=== PATIENT | male | born 1980 | race Caucasian/White ===

== ENCOUNTER 2019-08-31 12:51 | Emergency (ER) | payer MEDICARE, MEDICAID ==
[~2019-08-31] VITALS: Ht 193 cm; Wt 87.6 kg
[~2019-08-31 12:51] MED LIST: MOTRIN600 PO; RISP4TAB; TRAZ50TA; ZIPR80CAP
[2019-08-31] MEDS ORDERED: NS 1,000 ML IV ONE (13:45)
[2019-08-31 13:57] LABS: BASO # 0.1 10^3/uL (0.0-0.2); BASO % 0.4 % (0.0-1.0); EOS % 0.2 % (0.0-3.0); HEMATOCRIT 48.7 % (42.0-52.0); HEMOGLOBIN 16.8 g/dl (13.5-17.5); LYMPH # 1.9 10^3/uL (1.5-5.0); LYMPH % 9.5 % (24.0-44.0); MEAN CORPUSCULAR HEMOGLOBIN 30.3 pg (27.0-33.0); MEAN CORPUSCULAR HGB CONC 34.5 g/dl (32.0-36.5); MEAN CORPUSCULAR VOLUME 87.9 fl (80.0-96.0); MONO # 0.9 10^3/uL (0.0-0.8); MONO % 4.5 % (0.0-5.0); NEUTROPHILS # 16.6 10^3/uL (1.5-8.5); PLATELET COUNT, AUTOMATED 164 10^3/uL (150-450); RED BLOOD COUNT 5.54 10^6/uL (4.30-6.10); WHITE BLOOD COUNT 19.5 10^3/uL (4.0-10.0)
[2019-08-31 14:27] LABS: ALT/SGPT 19 U/L (12-78); BILIRUBIN,DIRECT 0.1 MG/DL (0.0-0.2); BILIRUBIN,TOTAL 0.8 MG/DL (0.2-1.0); BLOOD UREA NITROGEN 11 MG/DL (7-18); CALCIUM LEVEL 9.3 MG/DL (8.5-10.1); CARBON DIOXIDE LEVEL 27 MEQ/L (21-32); CHLORIDE LEVEL 105 MEQ/L (98-107); CK-MB VALUE MASS 1.6 NG/ML (<3.6); CPK CREATINE PHOSPHOKINASE 66 U/L (39-308); CREATININE FOR GFR 0.98 MG/DL (0.70-1.30); GLOMERULAR FILTRATION RATE > 60.0 (>60); GLUCOSE, FASTING 218 MG/DL (70-100); LIPASE 41 U/L (73-393); MB/CK RELATIVE INDEX 2.42 (< OR =4); POTASSIUM SERUM 4.1 MEQ/L (3.5-5.1); SODIUM LEVEL 139 MEQ/L (136-145); THYROID STIMULATING HORMONE 0.474 uIU/ML (0.358-3.740); TOTAL PROTEIN 6.7 GM/DL (6.4-8.2); TROPONIN I < 0.02 NG/ML (< 0.10)
--- NOTE | 2019-08-31 14:58 | REP ---
REASON: Dizziness. No trauma. No prior. TECHNIQUE: 4.5 mm contiguous transaxial sections were obtained from the skull base to the cerebral convexities with thin cuts through the posterior fossa without the administration of intravenous contrast. FINDINGS: The ventricles and sulci are consistent with the patient's age. There are no extra-axial fluid collections. There is no mass effect. The deep cerebral white matter is consistent with the patient's age. The orbital and petrous structures , cerebellopontine angles, and posterior fossa are unremarkable. The sella turcica, cavernous, and paracavernous structures are essentially unremarkable. The visualized portions of the paranasal sinuses and mastoid air cells are clear. Images of the skull base show no gross abnormality. IMPRESSION: Essentially unremarkable CT examination of the brain. Electronically Signed by Duglas Holly DO 08/31/2019 04:51 P
[2019-08-31 15:08] LABS: AMPHETAMINES LEVEL URINE NEGATIVE (NEGATIVE); BARBITURATES URINE NEGATIVE (NEGATIVE); BENZODIAZEPINES URINE NEGATIVE (NEGATIVE); CANNABINOIDS URINE NEGATIVE (NEGATIVE); COCAINE METABOLITE URINE NEGATIVE (NEGATIVE); METHADONE URINE NEGATIVE (NEGATIVE); OPIATES URINE NEGATIVE (NEGATIVE); PHENCYCLIDINE URINE NEGATIVE (NEGATIVE)
--- NOTE | 2019-08-31 15:09 | REP ---
REASON FOR EXAM: Abdominal pain. PRIORS: None. There is elevation of the diaphragmatic surfaces of the right lung. In the right lower lobe, there is a faintly visible 6 mm size nodule. This possibly represents the patient's nipple. The lung mccoy are otherwise clear and the heart is not enlarged. The pleural angles are sharp and the osseous structures are within normal limits. IMPRESSION: 1. Elevation of the diaphragmatic surface of the right lung, etiology uncertain. 2. Nodule in the right lower lobe as described above. Consider followup examination with nipple markers in place. One PA view of the chest with patient's arms up and the other PA view of the chest with the patient's arms down, both views with nipple markers in place. Electronically Signed by Duglas Holly DO 08/31/2019 04:51 P
[2019-08-31 16:55] VITALS: BP 152/89
[2019-08-31] MEDS ORDERED: AZIT-12 PO (17:25)
--- NOTE | 2019-08-31 19:14 | ECGEPIP ---
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
--- NOTE | 2019-09-01 07:05 | REP ---
REASON: Abdominal pain with leukocytosis. The lack of intravenous contrast and oral bowel preparatory contrast decreases the sensitivity of the exam. The lung bases are clear. Limited evaluation of the solid intra-abdominal organs and gallbladder show no gross abnormalities. Limited evaluation of the pancreas, adrenal glands, and kidneys show no gross abnormalities. Limited evaluation of the bowel loops and their mesenteries show no gross abnormalities. There is no free fluid or free air in the abdomen or pelvis. There is no intra-abdominal or intrapelvic mass or adenopathy. Limited evaluation of the abdominal aorta and paraaortic regions show no gross abnormalities. Bone window technique throughout the examination shows no osseous abnormality. There are age-related spinal degenerative changes. IMPRESSION: Limited noncontrast enhanced CT examination of the abdomen and pelvis is within normal limits. Electronically Signed by Duglas Holly DO 09/01/2019 12:45 P
--- NOTE | 2019-09-02 12:17 | ED PDOC ---
Post-Departure Follow-Up [facility] and dr ruiz faxed formal report of cxr for fu Zara Brannon MD Sep 02, 2019 12:17
== END 2019-08-31 17:53 | disposition home or self-care (01) ==
LOC: M ED 12:51
DX: R91.1 Solitary pulmonary nodule (principal); D72.829 Elevated white blood cell count, unspecified; E11.9 Type 2 diabetes mellitus without complications; F17.218 Nicotine dependence, cigarettes, with other nicotine-induced disorders; Z88.0 Allergy status to penicillin

== ENCOUNTER 2019-09-10 11:24 | Emergency (ER) | payer MEDICARE, MEDICAID ==
[~2019-09-10] VITALS: Ht 193 cm; Wt 88.3 kg
[2019-09-10 11:24] VITALS: BP 153/82
[~2019-09-10 11:24] MED LIST changes: +AZIT-12 PO
[2019-09-10 12:22] LABS: BASO # 0.1 10^3/uL (0.0-0.2); BASO % 0.8 % (0.0-1.0); EOS # 0.2 10^3/uL (0.0-0.5); EOS % 1.6 % (0.0-3.0); HEMATOCRIT 46.7 % (42.0-52.0); LYMPH # 2.9 10^3/uL (1.5-5.0); LYMPH % 28.3 % (24.0-44.0); MEAN CORPUSCULAR HEMOGLOBIN 30.9 pg (27.0-33.0); MEAN CORPUSCULAR HGB CONC 34.3 g/dl (32.0-36.5); MEAN CORPUSCULAR VOLUME 90.2 fl (80.0-96.0); MONO # 0.6 10^3/uL (0.0-0.8); NEUTROPHILS # 6.5 10^3/uL (1.5-8.5); NEUTROPHILS % 63.1 % (36.0-66.0); PLATELET COUNT, AUTOMATED 189 10^3/uL (150-450); RED BLOOD COUNT 5.18 10^6/uL (4.30-6.10); WHITE BLOOD COUNT 10.3 10^3/uL (4.0-10.0)
[2019-09-10 12:46] LABS: ERYTHROCYTE SEDIMENTATION RATE 2 mm/hr (0-15)
[2019-09-10 12:47] LABS: AMYLASE 22 U/L (25-115); BLOOD UREA NITROGEN 11 MG/DL (7-18); C REACTIVE PROTEIN QUANTITATIV < 0.30 MG/DL (0.00-0.30); CALCIUM LEVEL 9.3 MG/DL (8.5-10.1); CARBON DIOXIDE LEVEL 29 MEQ/L (21-32); CHLORIDE LEVEL 107 MEQ/L (98-107); CREATININE FOR GFR 0.72 MG/DL (0.70-1.30); GLOMERULAR FILTRATION RATE > 60.0 (>60); GLUCOSE, FASTING 129 MG/DL (70-100); POTASSIUM SERUM 4.1 MEQ/L (3.5-5.1); SODIUM LEVEL 140 MEQ/L (136-145)
== END 2019-09-10 13:27 | disposition home or self-care (01) ==
LOC: M ED 11:24
DX: K13.70 Unspecified lesions of oral mucosa (principal); E11.9 Type 2 diabetes mellitus without complications; F20.9 Schizophrenia, unspecified; F17.290 Nicotine dependence, other tobacco product, uncomplicated; F17.220 Nicotine dependence, chewing tobacco, uncomplicated; Z88.0 Allergy status to penicillin

== ENCOUNTER 2019-09-18 13:39 | Emergency (ER) | payer MEDICARE, MEDICAID ==
[~2019-09-18] VITALS: Ht 193 cm; Wt 91.3 kg
[2019-09-18 14:56] LABS: BASO # 0.1 10^3/uL (0.0-0.2); BASO % 0.7 % (0.0-1.0); EOS # 0.2 10^3/uL (0.0-0.5); EOS % 1.5 % (0.0-3.0); HEMATOCRIT 44.4 % (42.0-52.0); HEMOGLOBIN 14.9 g/dl (13.5-17.5); LYMPH # 2.4 10^3/uL (1.5-5.0); MEAN CORPUSCULAR HEMOGLOBIN 30.4 pg (27.0-33.0); MEAN CORPUSCULAR HGB CONC 33.6 g/dl (32.0-36.5); MEAN CORPUSCULAR VOLUME 90.6 fl (80.0-96.0); MONO # 0.7 10^3/uL (0.0-0.8); MONO % 6.7 % (0.0-5.0); NEUTROPHILS # 7.5 10^3/uL (1.5-8.5); NEUTROPHILS % 68.8 % (36.0-66.0); PLATELET COUNT, AUTOMATED 187 10^3/uL (150-450); WHITE BLOOD COUNT 10.9 10^3/uL (4.0-10.0)
[2019-09-18 15:28] LABS: ACETAMINOPHEN LEVEL < 2.0 UG/ML (10.0-30.0); ALBUMIN 3.5 GM/DL (3.2-5.2); ALT/SGPT 26 U/L (12-78); BILIRUBIN,DIRECT < 0.1 MG/DL (0.0-0.2); BILIRUBIN,TOTAL 0.3 MG/DL (0.2-1.0); BLOOD UREA NITROGEN 21 MG/DL (7-18); CALCIUM LEVEL 8.9 MG/DL (8.5-10.1); CARBON DIOXIDE LEVEL 30 MEQ/L (21-32); CHLORIDE LEVEL 108 MEQ/L (98-107); CPK CREATINE PHOSPHOKINASE 64 U/L (39-308); CREATININE FOR GFR 0.72 MG/DL (0.70-1.30); ETHYL ALCOHOL (ETHANOL) < 0.003 % (0.000-0.010); GLOMERULAR FILTRATION RATE > 60.0 (>60); GLUCOSE, FASTING 115 MG/DL (70-100); POTASSIUM SERUM 4.2 MEQ/L (3.5-5.1); SALICYLATE LEVEL 1.8 MG/DL (5.0-30.0); SODIUM LEVEL 144 MEQ/L (136-145); THYROID STIMULATING HORMONE 0.631 uIU/ML (0.358-3.740); TOTAL PROTEIN 6.2 GM/DL (6.4-8.2)
--- NOTE | 2019-09-18 15:48 | REP ---
Clinical: Chest pain . Comparison: 08/31/2019 . Technique: PA and lateral with nipple markers . Findings: The mediastinum and cardiac silhouette are normal. The lung mccoy demonstrate decreased inspiratory effort with increased elevation to the right hemidiaphragm and correlation is recommended. Previously identified nodule likely represented asymmetric nipple shadow. No obvious acute consolidation, effusion, or pneumothorax. The skeletal structures are intact and normal. Impression: 1. Previous nodule in the right lower lung zone likely represented asymmetric nipple shadow. 2. Current examination demonstrates poor inspiratory effort with increased asymmetric elevation to the right hemidiaphragm and correlation is recommended. Electronically Signed by Bradford Castle MD 09/18/2019 03:40 P
[2019-09-18 16:42] LABS: AMPHETAMINES LEVEL URINE NEGATIVE (NEGATIVE); BARBITURATES URINE NEGATIVE (NEGATIVE); BENZODIAZEPINES URINE NEGATIVE (NEGATIVE); CANNABINOIDS URINE NEGATIVE (NEGATIVE); COCAINE METABOLITE URINE NEGATIVE (NEGATIVE); METHADONE URINE NEGATIVE (NEGATIVE); OPIATES URINE NEGATIVE (NEGATIVE); PHENCYCLIDINE URINE NEGATIVE (NEGATIVE)
[2019-09-18 17:31] VITALS: BP 129/73
--- NOTE | 2019-09-18 21:42 | ECGEPIP ---
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
== END 2019-09-18 17:59 | disposition home or self-care (01) ==
LOC: M ED 13:39
DX: R07.9 Chest pain, unspecified (principal); R05 Cough; R42 Dizziness and giddiness; E78.49 Other hyperlipidemia; G47.33 Obstructive sleep apnea (adult) (pediatric); G47.00 Insomnia, unspecified; E11.9 Type 2 diabetes mellitus without complications; F25.9 Schizoaffective disorder, unspecified; F17.218 Nicotine dependence, cigarettes, with other nicotine-induced disorders
CPT/HCPCS: 71046; 80048; 80076; 80307; 82375; 82550; 84443; 85025; 85379; 93005; 93041; 94760; 99285; G0480

== ENCOUNTER 2019-10-12 10:53 | Emergency (ER) | payer MEDICARE, MEDICAID ==
[~2019-10-12] VITALS: Ht 193 cm; Wt 90.9 kg
[2019-10-12 11:36] LABS: BASO # 0.1 10^3/uL (0.0-0.2); BASO % 0.8 % (0.0-1.0); EOS % 0.5 % (0.0-3.0); HEMATOCRIT 43.9 % (42.0-52.0); LYMPH # 1.9 10^3/uL (1.5-5.0); LYMPH % 22.1 % (24.0-44.0); MEAN CORPUSCULAR HEMOGLOBIN 30.4 pg (27.0-33.0); MEAN CORPUSCULAR HGB CONC 34.2 g/dl (32.0-36.5); MEAN CORPUSCULAR VOLUME 88.9 fl (80.0-96.0); MONO # 0.6 10^3/uL (0.0-0.8); MONO % 7.1 % (0.0-5.0); NEUTROPHILS # 5.9 10^3/uL (1.5-8.5); NEUTROPHILS % 69.3 % (36.0-66.0); PLATELET COUNT, AUTOMATED 210 10^3/uL (150-450); RED BLOOD COUNT 4.94 10^6/uL (4.30-6.10); WHITE BLOOD COUNT 8.5 10^3/uL (4.0-10.0)
[2019-10-12 12:11] LABS: ALBUMIN 3.8 GM/DL (3.2-5.2); ALT/SGPT 24 U/L (12-78); BILIRUBIN,DIRECT 0.1 MG/DL (0.0-0.2); BILIRUBIN,TOTAL 0.7 MG/DL (0.2-1.0); CK-MB VALUE MASS 2.2 NG/ML (<3.6); CPK CREATINE PHOSPHOKINASE 63 U/L (39-308); LIPASE 36 U/L (73-393); MB/CK RELATIVE INDEX 3.49 (< OR =4); TOTAL PROTEIN 6.6 GM/DL (6.4-8.2); TROPONIN I < 0.02 NG/ML (< 0.10)
--- NOTE | 2019-10-12 12:39 | REP ---
REASON: Abdominal pain. COMPARISON: 09/18/2019 FINDINGS: The superior mediastinal structures are midline. The cardiac silhouette is unremarkable in size, shape, and position. The diaphragmatic surfaces of the lungs are regular, and the costophrenic angles are clear. The pulmonary mccoy are clear. The imaged osseous structures are intact. IMPRESSION: There is no acute cardiopulmonary disease. Electronically Signed by Duglas Holly DO 10/12/2019 02:10 P
[2019-10-12] MEDS ORDERED: GI COCKTAIL 50ML BTL(HYOSCYAMINE/MAALOX/LIDOCAINE VISCOUS)(1:3:1) PO ONE (12:45)
[2019-10-12] MEDS ORDERED: NS 1,000 ML IV ONE (12:45)
[2019-10-12] MEDS ORDERED: PROMETHAZINE INJ 25 MG/ML VIAL (J2550) IV ONE (12:45)
[2019-10-12 12:46] LABS: BLOOD UREA NITROGEN 9 MG/DL (7-18); CALCIUM LEVEL 9.5 MG/DL (8.5-10.1); CARBON DIOXIDE LEVEL 28 MEQ/L (21-32); CHLORIDE LEVEL 102 MEQ/L (98-107); GLOMERULAR FILTRATION RATE > 60.0 (>60); GLUCOSE, FASTING 184 MG/DL (70-100); POTASSIUM SERUM 4.1 MEQ/L (3.5-5.1); SODIUM LEVEL 137 MEQ/L (136-145)
[2019-10-12] MEDS ORDERED: ISOVUE-370 76% 100ML VIAL (Q9967) As Ordered ONE (13:13)
[2019-10-12 14:00] VITALS: BP 132/76
[2019-10-12] MEDS ORDERED: SUCR1SUS PO (14:14)
[2019-10-12] MEDS ORDERED: PROM25TA12 PO (14:14)
[2019-10-12] MEDS ORDERED: OMEP40CA97 PO (14:14)
--- NOTE | 2019-10-12 14:18 | REP ---
REASON FOR EXAM: Abdominal pain. COMPARISON: Noncontrast-enhanced examination of 08/21/2019, which was normal. Contrast today 100 mL of Isovue 370. The lung bases are clear and unchanged. The liver, gallbladder, spleen, pancreas, adrenal glands, and kidneys are within normal limits. The abdominal aorta and para-aortic regions are within normal limits. The bowel loops and their mesenteries are within normal limits. There is no free fluid or free air. There is no intra-abdominal mass or adenopathy. CT PELVIS: There is no mass or adenopathy. There is no free fluid or free air. The bowel loops and their mesenteries are within normal limits. Bone window technique throughout the examination shows the osseous structures to be within normal limits. IMPRESSION: CT findings are within normal limits. Electronically Signed by Duglas Holly DO 10/12/2019 03:08 P
--- NOTE | 2019-10-12 19:20 | ECGEPIP ---
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
== END 2019-10-12 14:30 | disposition home or self-care (01) ==
LOC: EDBD 10:53 → EDUNIT# 10:53 → M ED 10:53
DX: K29.70 Gastritis, unspecified, without bleeding (principal); K21.9 Gastro-esophageal reflux disease without esophagitis; E11.9 Type 2 diabetes mellitus without complications; E78.5 Hyperlipidemia, unspecified; F25.9 Schizoaffective disorder, unspecified; F17.210 Nicotine dependence, cigarettes, uncomplicated; Z88.0 Allergy status to penicillin; Z79.899 Other long term (current) drug therapy
CPT/HCPCS: 71046; 74177; 80048; 80076; 81001; 82550; 82553; 83690; 84484; 85025; 93005; 93041; 96374; 99285; Q9967

== ENCOUNTER → 2020-01-26 | Outpatient (REF) | payer MEDICARE, MEDICAID ==
[~2020-01-26] MED LIST changes: +OMEP40CA97 PO; +PROM25TA12 PO; +SUCR1ORA PO
[2020-01-26 18:00] LABS: HEMATOCRIT 45.3 % (42.0-52.0); HEMOGLOBIN 14.9 g/dl (13.5-17.5); MEAN CORPUSCULAR HEMOGLOBIN 29.8 pg (27.0-33.0); MEAN CORPUSCULAR HGB CONC 32.9 g/dl (32.0-36.5); MEAN CORPUSCULAR VOLUME 90.6 fl (80.0-96.0); PLATELET COUNT, AUTOMATED 254 10^3/uL (150-450); WHITE BLOOD COUNT 10.5 10^3/uL (4.0-10.0)
[2020-01-26 18:28] LABS: ALBUMIN 4.4 GM/DL (3.2-5.2); ALT/SGPT 29 U/L (12-78); BILIRUBIN,TOTAL 0.4 MG/DL (0.2-1.0); BLOOD UREA NITROGEN 23 MG/DL (7-18); CALCIUM LEVEL 9.6 MG/DL (8.5-10.1); CARBON DIOXIDE LEVEL 31 MEQ/L (21-32); CHLORIDE LEVEL 107 MEQ/L (98-107); CHOLESTEROL LEVEL 161 MG/DL (<200); CREATININE FOR GFR 0.85 MG/DL (0.70-1.30); FREE T4 1.03 NG/DL (0.76-1.46); GLOMERULAR FILTRATION RATE > 60.0 (>60); GLUCOSE, FASTING 86 MG/DL (70-100); HDL CHOLESTEROL 46 MG/DL (>40); LDL CHOLESTEROL 91 MG/DL (<100); NON-HDL-C 115 MG/DL; POTASSIUM SERUM 4.6 MEQ/L (3.5-5.1); SODIUM LEVEL 142 MEQ/L (136-145); TOTAL PROTEIN 7.3 GM/DL (6.4-8.2); TRIGLYCERIDES LEVEL 122 MG/DL (<150)
[2020-01-26 18:29] LABS: MALB URINE SIEMENS 13.8 MG/L; MAU/CREAT RATIO 10.9 MCG/MG (0.0-30.0)
[2020-01-26 18:31] LABS: TOTAL 25(OH) VITAMIN D 19.8 NG/ML (30.0-100.0)
[2020-01-26 18:38] LABS: HEMOGLOBIN A1c 6.6 %
== END ==
LOC: M SFHCPLAZ 14:18
PROVIDERS: ATTEND Physician Assistant
DX: R42 Dizziness and giddiness (principal); E11.9 Type 2 diabetes mellitus without complications; E78.2 Mixed hyperlipidemia; Z13.29 Encounter for screening for other suspected endocrine disorder; Z79.899 Other long term (current) drug therapy
CPT/HCPCS: 36415; 80053; 80061; 82043; 82306; 83036; 84439; 84443; 85027; G0463

== ENCOUNTER → 2021-10-05 | Outpatient (CLI) | payer OTHER ==
[~2021-10-05] MED LIST changes: +OMEP40CA4 PO; -OMEP40CA97 PO
[2021-10-05 14:04] LABS: BLOOD UREA NITROGEN 14 MG/DL (7-18); CREATININE FOR GFR 0.91 MG/DL (0.70-1.30); GLOMERULAR FILTRATION RATE > 60.0 (>60)
== END ==
LOC: M LAB 12:16
PROVIDERS: ATTEND Physician Assistant Medical
DX: K11.23 Chronic sialoadenitis (principal)

== ENCOUNTER → 2021-10-07 | Outpatient (CLI) | payer MEDICAID, MEDICARE, OTHER ==
[~2021-10-07] MED LIST changes: +ISOVUE-370 76% 100ML VIAL As Ordered ONE
--- NOTE | 2021-10-07 15:47 | REPVR ---
PROCEDURE INFORMATION: Exam: CT Neck With Contrast Exam date and time: 10/07/2021 2:59 PM Age: 40 years old Clinical indication: Mass, lump, or swelling in neck; Right; Additional info: Acute sialoadenitis TECHNIQUE: Imaging protocol: Computed tomography images of the neck with contrast. Radiation optimization: All CT scans at this facility use at least one of these dose optimization techniques: automated exposure control; mA and/or kV adjustment per patient size (includes targeted exams where dose is matched to clinical indication); or iterative reconstruction. Contrast material: ISOVUE 370; Contrast volume: 75 ml; Contrast route: INTRAVENOUS (IV); COMPARISON: CT Head without contrast 08/31/2019 1:54 PM FINDINGS: Nasopharynx: Unremarkable. Dental: Right mandibular 1st molar large dental cavity. Periapical lucency adjacent to the tooth consistent with periapical abscess. Oropharynx: Unremarkable. No significant tonsillar enlargement. Hypopharynx: Unremarkable. Larynx: Unremarkable. Normal epiglottis. Retropharyngeal space: Unremarkable. Submandibular/Parotid glands: The right submandibular gland is enlarged and inflamed consistent with sialadenitis. There is a sialolith measuring 9 x 7 mm within the superior gland, image 42 series 201. Thyroid: Normal. No enlarged or calcified nodules. Lymph nodes: Mildly enlarged submental as well as right submandibular and jugulodigastric lymph nodes, likely reactive. Trachea: Visualized trachea is unremarkable. Lungs: Unremarkable as visualized. Bones/joints: Unremarkable. No acute fracture. Soft tissues: No soft tissue abscess. IMPRESSION: 1. Findings consistent with right submandibular sialadenitis. There is a sialolith within the gland. 2. There is right mandibular molar dental decay which could predispose the patient to sialadenitis. Electronically signed by: Monica Walsh On 10/07/2021 15:46:37 PM
== END ==
LOC: M RAD 14:22
PROVIDERS: ATTEND Otolaryngology
DX: K11.21 Acute sialoadenitis (principal)
CPT/HCPCS: 70491; Q9967

== ENCOUNTER 2022-10-30 18:56 | Emergency (ER) | payer OTHER, MEDICAID ==
[~2022-10-30] VITALS: Ht 193 cm; Wt 105.5 kg
[~2022-10-30 18:56] MED LIST changes: -ISOVUE-370 76% 100ML VIAL As Ordered ONE
[2022-10-31] MEDS ORDERED: BOOSTRIX/ADACEL VACCINE (DIPHTH/PERTUSS/ACELL/TETANUS) 0.5ML SYR IM ONE (03:25)
[2022-10-31] MEDS ORDERED: DERMABOND TOPICAL SKIN ADHESIVE TOP ONE (03:25)
[2022-10-31 03:40] VITALS: BP 126/76
== END 2022-10-31 03:52 | disposition home or self-care (01) ==
LOC: EDBD 18:56 → M ED 18:56
DX: S01.81XA Laceration without foreign body of other part of head, initial encounter (principal); R93.89 Abnormal findings on diagnostic imaging of other specified body structures; W00.0XXA Fall on same level due to ice and snow, initial encounter; F17.200 Nicotine dependence, unspecified, uncomplicated; Z88.0 Allergy status to penicillin; Y92.481 Parking lot as the place of occurrence of the external cause; Y93.89 Activity, other specified; Y99.9 Unspecified external cause status; Z23 Encounter for immunization

== ENCOUNTER → 2023-02-23 | Outpatient (REF) | payer MEDICARE, MEDICAID ==
[2023-02-23 16:31] LABS: APPEARANCE, URINE CLEAR (CLEAR); BACTERIA, URINE AUTO NEGATIVE (NEGATIVE); BILIRUBIN, URINE AUTO NEGATIVE (NEGATIVE); BLOOD, URINE BLOOD NEGATIVE (NEGATIVE); COLOR, URINE YELLOW (YELLOW); GLUCOSE, URINE (UA) AUTO 3+ mg/dL (NEGATIVE); KETONE, URINE AUTO 1+ mg/dL (NEGATIVE); LEUKOCYTE ESTERASE, URINE AUTO NEGATIVE (NEGATIVE); NITRITE, URINE AUTO NEGATIVE (NEGATIVE); PROTEIN, URINE AUTO NEGATIVE (NEGATIVE); RBC, URINE AUTO 0 /HPF (0-3); SPECIFIC GRAVITY URINE AUTO 1.037 (1.002-1.035); SQUAMOUS EPITHELIAL CELL UR AU 0 /HPF (0-6); UROBILINOGEN, URINE AUTO 0.2 mg/dL (0.0-2.0); WBC, URINE AUTO 0 /HPF (0-3)
[2023-02-23 17:52] LABS: GC DNA AMPLIFICATION NEGATIVE (NEGATIVE)
== END ==
LOC: M LAB REF 15:53
PROVIDERS: ATTEND Physician Assistant Medical
DX: N39.0 Urinary tract infection, site not specified (principal)

== ENCOUNTER 2023-06-11 20:08 | Inpatient (IN) | payer OTHER, MEDICAID ==
[~2023-06-11] VITALS: Ht 193 cm; Wt 109.1 kg
[2023-06-11 21:07] LABS: HEMATOCRIT 48.9 % (42.0-52.0); HEMOGLOBIN 16.8 g/dl (13.5-17.5); MEAN CORPUSCULAR HGB CONC 34.4 g/dl (32.0-36.5); MEAN CORPUSCULAR VOLUME 87.3 fl (80.0-96.0); PLATELET COUNT, AUTOMATED 221 10^3/uL (150-450); WHITE BLOOD COUNT 12.1 10^3/uL (4.0-10.0)
[2023-06-11 21:21] LABS: AMPHETAMINES LEVEL URINE NEGATIVE (NEGATIVE); BARBITURATES URINE NEGATIVE (NEGATIVE); COCAINE METABOLITE URINE NEGATIVE (NEGATIVE); METHADONE URINE NEGATIVE (NEGATIVE); OPIATES URINE NEGATIVE (NEGATIVE); PHENCYCLIDINE URINE NEGATIVE (NEGATIVE)
[2023-06-11 21:22] LABS: BENZODIAZEPINES URINE NEGATIVE (NEGATIVE); CANNABINOIDS URINE NEGATIVE (NEGATIVE)
[2023-06-11 21:23] LABS: ETHYL ALCOHOL (ETHANOL) 0.197 % (0.000-0.010)
[2023-06-11 21:24] LABS: SALICYLATE LEVEL < 3.0 MG/DL (<30)
[2023-06-11 21:25] LABS: ACETAMINOPHEN LEVEL < 2.0 UG/ML (10.0-20.0)
[2023-06-11 21:26] LABS: THYROID STIMULATING HORMONE 1.196 uIU/ML (0.55-4.78)
[2023-06-11 21:33] LABS: ALBUMIN 4.2 G/DL (3.2-5.2); ALKALINE PHOSPHATASE 135 U/L (46-116); ALT/SGPT 20 U/L (7.0-40); AST/SGOT < 8 U/L (<34); BILIRUBIN,DIRECT < 0.1 MG/DL (<0.4); BILIRUBIN,TOTAL 0.3 MG/DL (0.3-1.2); BLOOD UREA NITROGEN 12 MG/DL (9-23); CALCIUM LEVEL 9.7 MG/DL (8.5-10.1); CARBON DIOXIDE LEVEL 24 MMOL/L (20-31); CHLORIDE LEVEL 98 MMOL/L (98-107); CREATININE FOR GFR 0.64 MG/DL (0.70-1.30); GLOMERULAR FILTRATION RATE > 60.0 (>60); GLUCOSE, FASTING 493 MG/DL (60-100); SODIUM LEVEL 134 MMOL/L (136-145); TOTAL PROTEIN 7.2 G/DL (5.7-8.2)
[2023-06-11] MEDS ORDERED: HumuLIN R (REGULAR) INSULIN (NovoLIN R) **100U/ML** PER UNIT IV ONE (21:35)
[2023-06-11] MEDS ORDERED: LORazepam 2 MG/ML 1ML VIAL IV STA (22:17)
[2023-06-11] MEDS: NS 1,000 ML IV SCH (22:30)
[2023-06-12] MEDS: NS 1,000 ML IV SCH (05:43)
[2023-06-12] MEDS ORDERED: HOME MED LIST COMPLETE! XX SCH (08:50)
[2023-06-12] MEDS ORDERED: diphenhydrAMINE 25MG CAP PO PRN (14:25)
[2023-06-12] MEDS ORDERED: MAALOX 30 ML SUSP *UDC PO PRN (14:25)
[2023-06-12] MEDS ORDERED: MOM 30ML SUSPENSION UDC PO PRN (14:25)
[2023-06-12] MEDS ORDERED: ACETAMINOPHEN TAB 650MG DOSE (2X325MG) PO PRN (14:25)
[2023-06-12] MEDS ORDERED: IBUPROFEN 400MG TAB PO PRN (14:25)
[2023-06-12 15:36] VITALS: BP 158/85; TEMP 97.8; O2SAT 97
[2023-06-12] MEDS ORDERED: GLUCAGON INJ 1MG VIAL SC PRN (17:20)
[2023-06-12] MEDS ORDERED: GLUCOSE 4GM CHEW TABLET PO PRN (17:20)
[2023-06-12] MEDS ORDERED: DEXTROSE 50% 50ML SYRINGE IV PRN (17:20)
[2023-06-12] MEDS ORDERED: INSULIN LISPRO (NovoLOG) PER UNIT SC ONE (17:25)
[2023-06-12] MEDS: INSULIN LISPRO (NovoLOG) PER UNIT SC SCH ×2 (17:35→20:26)
[2023-06-12 19:00] LABS: HEMOGLOBIN A1c 12.2 % (4.0-6.0)
[2023-06-12] MEDS ORDERED: LEVEMIR (INSULIN DETEMIR) 1 UNITS/0.01ML SC SCH (21:00)
[2023-06-13 05:54] VITALS: BP 137/78; TEMP 98.6; O2SAT 99
[2023-06-13] MEDS: INSULIN LISPRO (NovoLOG) PER UNIT SC SCH ×4 (06:36→20:01)
[2023-06-13] MEDS: NICOTINE 14 MG/24 HR TRANSDERMAL TD SCH (09:00)
[2023-06-13] MEDS: THIAMINE 100 MG TAB PO SCH ×2 (09:00→12:29)
[2023-06-13] MEDS: risperiDONE 1 MG TAB PO SCH ×2 (09:00→20:04)
[2023-06-13] MEDS: MULTIVITAMINS/MINERALS THERAP 1 TAB PO SCH ×2 (09:00→12:29)
[2023-06-13] MEDS: DIVALPROEX 250MG *ER* TAB PO SCH ×2 (09:00→20:04)
[2023-06-13] MEDS: FOLIC ACID 1MG TAB PO SCH ×2 (09:00→12:29)
[2023-06-13] MEDS ORDERED: LORazepam 2 MG TAB PO PRN (11:10)
[2023-06-13 12:10] VITALS: BP 134/84
[2023-06-13] MEDS: CHLORHEXIDINE GLUCONATE 0.12 % 15ML UDC (PERIDEX ORAL RINSE) MT SCH ×2 (12:30→20:01)
[2023-06-13 17:53] VITALS: BP 164/88; TEMP 97.8; O2SAT 98
[2023-06-13] MEDS: LEVEMIR (INSULIN DETEMIR) 1 UNITS/0.01ML SC SCH (20:01)
[2023-06-13] MEDS: traZODone 50 MG TAB PO PRN (20:01)
[2023-06-13] MEDS ORDERED: ATORVASTATIN 20 MG TAB PO SCH (21:00)
[2023-06-14] MEDS: INSULIN LISPRO (NovoLOG) PER UNIT SC SCH ×4 (06:45→20:59)
[2023-06-14 07:06] VITALS: BP 120/59; TEMP 97.5; O2SAT 99
[2023-06-14 07:22] LABS: CHOLESTEROL RISK RATIO 5.65 (<5); LDL CHOLESTEROL 144.4 MG/DL (<100)
[2023-06-14] MEDS: DIVALPROEX 250MG *ER* TAB PO SCH (09:00)
[2023-06-14] MEDS: NICOTINE 14 MG/24 HR TRANSDERMAL TD SCH (09:00)
[2023-06-14] MEDS ORDERED: PILL CUTTER 1 EACH XX PRN (09:25)
[2023-06-14] MEDS: CHLORHEXIDINE GLUCONATE 0.12 % 15ML UDC (PERIDEX ORAL RINSE) MT SCH ×2 (09:48→21:00)
[2023-06-14] MEDS: THIAMINE 100 MG TAB PO SCH ×2 (09:49→20:58)
[2023-06-14] MEDS: risperiDONE 1 MG TAB PO SCH ×2 (09:50→20:58)
[2023-06-14] MEDS: SITagliptin 50 MG TAB (JANUVIA) PO SCH (10:31)
[2023-06-14] MEDS: DAPAGLIFLOZIN PROPANEDIOL 10MG TABLET (FARXIGA) PO SCH (10:32)
[2023-06-14] MEDS: MULTIVITAMINS/MINERALS THERAP 1 TAB PO SCH ×2 (14:15→14:18)
[2023-06-14] MEDS: FOLIC ACID 1MG TAB PO SCH ×2 (14:15→14:18)
[2023-06-14 15:00] VITALS: BP 126/77
[2023-06-14 18:23] VITALS: BP 116/69; TEMP 97.1; O2SAT 100
[2023-06-14] MEDS: LEVEMIR (INSULIN DETEMIR) 1 UNITS/0.01ML SC SCH (20:59)
[2023-06-14] MEDS: traZODone 50 MG TAB PO PRN (21:00)
[2023-06-14] MEDS ORDERED: ATORVASTATIN 20 MG TAB PO SCH (21:00)
[2023-06-15] MEDS: INSULIN LISPRO (NovoLOG) PER UNIT SC SCH ×2 (06:42→12:12)
[2023-06-15 06:57] VITALS: BP 132/67; TEMP 96.8; O2SAT 98
[2023-06-15] MEDS: NICOTINE 14 MG/24 HR TRANSDERMAL TD SCH (08:08)
[2023-06-15] MEDS: MULTIVITAMINS/MINERALS THERAP 1 TAB PO SCH (08:09)
[2023-06-15] MEDS: SITagliptin 50 MG TAB (JANUVIA) PO SCH (08:09)
[2023-06-15] MEDS: FOLIC ACID 1MG TAB PO SCH (08:09)
[2023-06-15] MEDS: THIAMINE 100 MG TAB PO SCH (08:09)
[2023-06-15] MEDS: DAPAGLIFLOZIN PROPANEDIOL 10MG TABLET (FARXIGA) PO SCH (08:10)
[2023-06-15] MEDS: risperiDONE 1 MG TAB PO SCH (08:10)
[2023-06-15] MEDS: CHLORHEXIDINE GLUCONATE 0.12 % 15ML UDC (PERIDEX ORAL RINSE) MT SCH (08:11)
[2023-06-15] MEDS ORDERED: NICO14PA TD (12:15)
[2023-06-15] MEDS ORDERED: RISP-8 PO (12:15)
[2023-06-15] MEDS ORDERED: ATOR1TAB21 PO (12:15)
[2023-06-15] MEDS ORDERED: TRAZ-252 PO (12:15)
[2023-06-15] MEDS ORDERED: BLOOKIT21 XX (12:18)
[2023-06-15] MEDS ORDERED: ALCOPAD25 TOP (12:18)
[2023-06-15] MEDS ORDERED: GLUC1TES2 XX (12:18)
[2023-06-15] MEDS ORDERED: LANC30MI XX (12:18)
[2023-06-15] MEDS ORDERED: PEN1MIS21 SC (12:18)
[2023-06-15] MEDS ORDERED: INSU100I48 SQ (12:27)
[2023-06-15] MEDS ORDERED: FARX1TAB3 PO (12:27)
[2023-06-15] MEDS ORDERED: INSU100I16 SQ ×2 (12:29→12:32)
== END 2023-06-15 15:17 | disposition home or self-care (01) | DRG 885 ==
LOC: M ED 20:08 → M ED INP 06-12 14:24 → M PSY 06-12 15:35
PROVIDERS: ADMIT Student in an Organized Health Care Education/Training Program; ATTEND Student in an Organized Health Care Education/Training Program
DX: F31.81 Bipolar II disorder (principal); F10.10 Alcohol abuse, uncomplicated; F22 Delusional disorders; E11.9 Type 2 diabetes mellitus without complications; F17.210 Nicotine dependence, cigarettes, uncomplicated; D72.829 Elevated white blood cell count, unspecified; K02.9 Dental caries, unspecified; Z88.0 Allergy status to penicillin; E66.9 Obesity, unspecified; K11.22 Acute recurrent sialoadenitis

== ENCOUNTER → 2025-03-05 | Outpatient (REF) | payer OTHER, MEDICAID ==
[~2025-03-05] MED LIST changes: +ALCOPAD25 TOP; +ATOR1TAB21 PO; +BLOOKIT21 XX; +FARX1TAB3 PO; +GLUC1TES2 XX; +INSU100I16 SQ; +INSU100I48 SQ; +LANC30MI XX; +NICO14PA TD; +PEN-308 SC; +RISP-105 PO; +TRAZ-252 PO
[2025-03-05 18:33] LABS: APPEARANCE, URINE CLEAR (CLEAR); BACTERIA, URINE AUTO NEGATIVE (NEGATIVE); BILIRUBIN, URINE AUTO NEGATIVE (NEGATIVE); BLOOD, URINE BLOOD NEGATIVE (NEGATIVE); COLOR, URINE YELLOW (YELLOW); GLUCOSE, URINE (UA) AUTO 3+ mg/dL (NEGATIVE); KETONE, URINE AUTO TRACE mg/dL (NEGATIVE); LEUKOCYTE ESTERASE, URINE AUTO NEGATIVE (NEGATIVE); NITRITE, URINE AUTO NEGATIVE (NEGATIVE); PROTEIN, URINE AUTO NEGATIVE (NEGATIVE); RBC, URINE AUTO 0 /HPF (0-3); SPECIFIC GRAVITY URINE AUTO 1.038 (1.002-1.035); SQUAMOUS EPITHELIAL CELL UR AU 0 /HPF (0-6); UROBILINOGEN, URINE AUTO 0.2 mg/dL (0.0-2.0); WBC, URINE AUTO 0 /HPF (0-3)
[2025-03-05 20:59] LABS: Trichomonas vaginalis (AMP) NOT DETECTED (NEGATIVE)
[2025-03-05 21:22] LABS: GC DNA AMPLIFICATION NEGATIVE (NEGATIVE)
== END ==
LOC: M LAB REF 17:11
PROVIDERS: ATTEND Physician Assistant
DX: N39.0 Urinary tract infection, site not specified (principal); Z11.3 Encounter for screening for infections with a predominantly sexual mode of transmission; Z72.89 Other problems related to lifestyle

== ENCOUNTER → 2025-07-01 | Outpatient (CLI) | payer OTHER, MEDICAID | LOC: M RAD 16:43 | PROVIDERS: ATTEND Physician Assistant | DX: M27.8 Other specified diseases of jaws (principal) ==

== ENCOUNTER → 2025-08-26 | Outpatient (CLI) | payer OTHER, MEDICAID ==
[2025-08-26 14:25] LABS: CREATININE FOR GFR 0.80 MG/DL (0.70-1.30); GLOMERULAR FILTRATION RATE > 90.0 (>60)
== END ==
LOC: M LAB 13:25
PROVIDERS: ATTEND Otolaryngology
DX: K11.5 Sialolithiasis (principal)

== ENCOUNTER → 2025-08-27 | Outpatient (CLI) | payer OTHER, MEDICAID ==
[~2025-08-27] MED LIST changes: +ISOVUE-370 76% 100 ML VIAL ONE
== END ==
LOC: M PLAIMG 11:52
PROVIDERS: ATTEND Otolaryngology
DX: K11.5 Sialolithiasis (principal)
CPT/HCPCS: 70491; Q9967

== ENCOUNTER → 2025-09-10 | Outpatient (CLI) | payer OTHER, MEDICAID ==
[~2025-09-10] MED LIST changes: -ISOVUE-370 76% 100 ML VIAL ONE
== END ==
LOC: M RAD 14:45
PROVIDERS: ATTEND Otolaryngology
DX: J32.0 Chronic maxillary sinusitis (principal); J34.2 Deviated nasal septum; J34.89 Other specified disorders of nose and nasal sinuses; J01.00 Acute maxillary sinusitis, unspecified